=== PATIENT | male | born 1985 | race Caucasian/White ===

== ENCOUNTER → 2016-10-24 | Outpatient (CLI) | payer OTHER ==
[~2016-10-24] MED LIST: AMOX-351 PO
--- NOTE | 2016-10-25 10:39 | DI ---
Indication: ITS.REASON: S91.332A penetrating injury from stepping on nail PROCEDURE: FOOT LEFT 3 VIEWS: Encounter: Initial Comparison: None Findings: There is no acute fracture, dislocation or malalignment identified. No radiopaque foreign body identified. Impression: No acute osseous abnormality. .
== END ==
LOC: IMA.CCC 15:54
PROVIDERS: ATTEND Nurse Practitioner Family
DX: Z03.89 Encounter for observation for other suspected diseases and conditions ruled out (principal)